=== PATIENT | female | born 1965 | race Hispanic/Latino ===

== ENCOUNTER 2017-01-29 06:38 | Day surgery (SDC) | payer MEDICARE ==
[2017-01-29 06:53] VITALS: BMI 42.5
--- NOTE | 2017-01-29 08:46 | CP.SDSHP ---
Same Day Surgery H & P - History Proposed Procedure: Colonoscopy Pre-Op Diagnosis: Screening colonoscopy - r/o colon polyps - Previous Medical/Surgical History Pulmonary: Emphysema/COPD Misc: Other (arthritis) Previous Surgical History: Lumbar spine surgery - Allergies Allergies: Allergies aspirin Adverse Reaction (Verified 01/29/17 06:53) URTICARIA ciprofloxacin [From Cipro] Adverse Reaction (Verified 01/29/17 06:53) URTICARIA Penicillins Adverse Reaction (Verified 01/29/17 06:53) ANAPHYLAXIS shellfish derived Adverse Reaction (Verified 01/29/17 06:53) URTICARIA - Physical Exam Vital Signs: Vital Signs 01/29/17 06:53 Temperature 98.6 F Pulse Rate 83 Respiratory 19 Rate Blood Pressure 97/68 L O2 Sat by Pulse 97 Oximetry Mental Status: Alert & Oriented x3 Neuro: WNL Heart: WNL Lungs: WNL GI: WNL - {Optional Preform as Required} Abdomen: WNL - Impression Impression: Colonoscopy planned - proceed with procedure Pt. Evaluated Today:Candidate for Anesthesia & Procedure: Yes - Date & Time Date: 01/29/17 Time: 08:10 Short Stay Discharge - Short Stay Discharge Admitting Diagnosis/Reason for Visit: SCREENING FOR COLON CANCER Disposition: HOME/ ROUTINE
[2017-01-29] MEDS ORDERED: Lactated Ringer's 500 ML IV ONE (09:10)
[2017-01-29] MEDS ORDERED: Lidocaine Hydrochloride 5 ML INJ ONE (09:12)
[2017-01-29] MEDS ORDERED: Propofol 10 mg/ml Inj (20 ML) ONE (09:12)
[2017-01-29] MEDS ORDERED: Albuterol HFA 90 mcg/actuation (8 g) ONE (09:12)
[2017-01-29 10:20] VITALS: RESP 21; O2SAT 100
[2017-01-29 10:48] VITALS: BP 112/84; PULSE 73; TEMP 97.2
== END 2017-01-29 10:45 | disposition home or self-care (01) ==
LOC: C.ENDO 06:38
PROVIDERS: ATTEND Internal Medicine Gastroenterology
DX: Z12.11 Encounter for screening for malignant neoplasm of colon (principal); Z12.12 Encounter for screening for malignant neoplasm of rectum; D12.5 Benign neoplasm of sigmoid colon; K57.30 Diverticulosis of large intestine without perforation or abscess without bleeding; K64.8 Other hemorrhoids; J43.9 Emphysema, unspecified; Z88.0 Allergy status to penicillin; Z91.013 Allergy to seafood
CPT/HCPCS: 45385; 88305; J2704; J7120

== ENCOUNTER 2017-03-05 08:55 | Day surgery (SDC) | payer MEDICARE ==
[2017-03-05 09:36] VITALS: BMI 41.3
[2017-03-05] MEDS ORDERED: Propofol 10 mg/ml Inj (20 ML) ONE ×2 (11:00→11:09)
[2017-03-05 14:15] VITALS: RESP 18; TEMP 97.5
[2017-03-05 14:16] VITALS: O2SAT 95
[2017-03-05 14:24] VITALS: BP 107/60; PULSE 78
== END 2017-03-05 12:42 | disposition home or self-care (01) ==
LOC: C.ENDO 08:55
PROVIDERS: ATTEND Internal Medicine Gastroenterology
DX: K31.7 Polyp of stomach and duodenum (principal); R79.89 Other specified abnormal findings of blood chemistry; K29.70 Gastritis, unspecified, without bleeding
CPT/HCPCS: 43270; 88305; 88312; 88313; 88342; J2704

== ENCOUNTER 2017-08-13 07:04 | Day surgery (SDC) | payer MEDICARE ==
[2017-08-03 08:10] VITALS: BMI 38.9
[2017-08-13] MEDS ORDERED: Clindamycin 600mg/50ml NS 600 MG/50 ML BAG IVPB ONE (08:54)
[2017-08-13] MEDS ORDERED: Midazolam 2 MG/2 ML VIAL ONE (09:02)
[2017-08-13] MEDS ORDERED: Propofol 10 mg/ml Inj (20 ML) ONE (09:02)
[2017-08-13] MEDS: Bupivacaine 0.25% Inj(30mL) ONE ×2 (09:12→09:28)
[2017-08-13] MEDS: Lidocaine/Epinephrine 1% 1:100000 10 ML IJ ONE ×2 (09:12→09:30)
--- NOTE | 2017-08-13 09:53 | PCM.SURG1 ---
Surgeon's Initial Post Op Note - Surgeon's Notes Surgeon: Dr finley Negative Cleaner: Dr Fermin PGY3 Type of Anesthesia: General Endo Pre-Operative Diagnosis: scalp lipoma Operative Findings: see report Post-Operative Diagnosis: as above Operation Performed: excision of scalp lipoma Specimen/Specimens Removed: lipoma Estimated Blood Loss: EBL {In ML}: 5 Blood Products Given: N/A Drains Used: No Drains Post-Op Condition: Good Date of Surgery/Procedure: 08/13/17 Time of Surgery/Procedure: 09:53
[2017-08-13] MEDS ORDERED: Oxycodone/Acetaminophen 5/325 mg Tab PO PRN (09:54)
[2017-08-13] MEDS ORDERED: HYDROmorphone 0.5 mg/0.5 ml ISec IVP PRN (09:55)
[2017-08-13 12:31] VITALS: BP 92/56; PULSE 63; RESP 18; TEMP 98.1; O2SAT 97
--- NOTE | 2017-08-14 06:56 | OP ---
PROCEDURE DATE: 08/13/2017 PREOPERATIVE DIAGNOSIS: Lipoma of the occipital scalp area, 4 x 3 cm in size. POSTOPERATIVE DIAGNOSIS: Lipoma of the occipital scalp area, 4 x 3 cm in size. PROCEDURE DONE: 1. Excision of the lipoma of the mid occipital scalp area, 4 x 3 cm in size. 2. Layer closure of the wound, 4 x 3 cm in size. TYPE OF ANESTHESIA: Local anesthesia plus sedation. ESTIMATED BLOOD LOSS: Around 10 mL. SURGEON: Ivan Tomlinson MD. BEAUTY PARLOR CLEANER: Norberto Fermin. COMPLICATIONS: None. DRAINS: None. PATHOLOGY: The lipoma was sent for the pathology. INTRAOPERATIVE FINDINGS: The patient had approximately 4 x 3 cm large lipoma of the mid occipital area. DESCRIPTION OF PROCEDURE: On intraoperative steps, this is a 52-year-old female who was diagnosed with lipoma of the mid occipital area and the patient was consented for excision, brought to the OR, placed in left lateral position on the operating table. After induction of the sedation, the scalp area was prepped and draped after shaving part of the lipoma area and local anesthesia was injected. The elliptical shaped incision was made after incising skin, subcutaneous tissue, and deep layer of the scalp. Upper and lower flap was created, and the lipoma was completely excised and it was sent off the table for the pathology. Hemostasis was achieved. The upper and lower flap was sutured with 2-0 Vicryl and the skin with multiple layer of 4-0 nylon interrupted suture, and dry sterile dressing was applied. The patient tolerated the procedure well. Count of the instrument and gauze was correct. There was no apparent complication. The patient was reversed from sedation. Sent to the postanesthesia care unit in stable condition. Ivan Tomlinson MD [place]
== END 2017-08-13 11:08 | disposition home or self-care (01) ==
LOC: C.SDS 07:04
PROVIDERS: ATTEND Surgery Surgical Critical Care
DX: D17.0 Benign lipomatous neoplasm of skin and subcutaneous tissue of head, face and neck (principal); Z88.0 Allergy status to penicillin; Z91.013 Allergy to seafood; Z88.6 Allergy status to analgesic agent; Z88.1 Allergy status to other antibiotic agents; M19.90 Unspecified osteoarthritis, unspecified site; J44.9 Chronic obstructive pulmonary disease, unspecified; E78.5 Hyperlipidemia, unspecified
CPT/HCPCS: 11426; 12032; 88304; J2250; J2704; J3010

== ENCOUNTER 2018-05-06 10:51 | Day surgery (SDC) | payer MEDICARE ==
[2018-05-03 10:55] VITALS: BMI 40.7
[2018-05-06] MEDS ORDERED: Lidocaine Hydrochloride 5 ML INJ ONE (11:25)
[2018-05-06] MEDS ORDERED: Absorbable Gelatin Sponge Size 12-7 ONE (11:26)
[2018-05-06] MEDS ORDERED: Midazolam 2 MG/2 ML VIAL ONE (12:27)
[2018-05-06 12:28] LABS: INR 1.1; PROTHROMBIN TIME 11.7 SECONDS (9.7-12.2)
--- NOTE | 2018-05-06 12:34 | PCM.SURG1 ---
Surgeon's Initial Post Op Note - Surgeon's Notes Surgeon: Kirk Piper MD Glass Cutting Machine Feeder: NONE Type of Anesthesia: IV Sedation Pre-Operative Diagnosis: Abnormal LFTs Operative Findings: US showed unremarkable left lobe of liver Post-Operative Diagnosis: Abnormal LFTs Operation Performed: US guided liver biopsy Specimen/Specimens Removed: 18 g core x 3 Estimated Blood Loss: EBL {In ML}: 2 Blood Products Given: Autologous (Cell Saver) Post-Op Condition: Good Date of Surgery/Procedure: 05/06/18 Time of Surgery/Procedure: 12:30
--- NOTE | 2018-05-06 12:35 | CP.SDSHP ---
Same Day Surgery H & P - History Proposed Procedure: US guided liver biopsy Pre-Op Diagnosis: abnormal lFTS - Allergies Allergies: Allergies Penicillins Adverse Reaction (Severe, Verified 05/03/18 10:46) ANAPHYLAXIS shellfish derived Adverse Reaction (Severe, Verified 05/03/18 10:46) ANAPHYLAXIS aspirin Adverse Reaction (Intermediate, Verified 05/03/18 10:46) URTICARIA ciprofloxacin [From Cipro] Adverse Reaction (Intermediate, Verified 05/03/18 10: 46) URTICARIA - Impression Impression: Pt with abnormal LFts referred for liver biopsy. Plan US guided left liver biopsy. INformed consent obtained. Pt. Evaluated Today:Candidate for Anesthesia & Procedure: Yes (ASA 2 Malampati 3) - Date & Time Date: 05/06/18 Time: 12:00 Short Stay Discharge - Short Stay Discharge Admitting Diagnosis/Reason for Visit: ABNORMAL RESULTS OF LIVER FUNCTION STUDIES Disposition: HOME/ ROUTINE
--- NOTE | 2018-05-06 13:35 | US ---
PROCEDURE: Date of procedure: 05/06/2018 Procedure: 1. Ultrasound-guided core liver biopsy, CPT 59668 2. Ultrasound guidance for biopsy, 73018 Medications: The patient is sedated by the anesthesiologist. HISTORY: Abnormal LFTs TECHNIQUE: Following informed consent and procedure time-out, the patient was placed supine on bed and limited ultrasound showed a normal appearing left hepatic lobe. After patient abdomen was prepped and draped in the usual sterile fashion and the skin was anesthetized with 2% lidocaine, an 18 gauge core needle was advanced percutaneously under direct ultrasound guidance into the left hepatic lobe. Upon confirmation of needle position, three 18 gauge core specimens were obtained and sent for routine pathology. The biopsy to tract was then embolized with Gelfoam. A post biopsy ultrasound showed no hematoma. A dressing was applied. IMPRESSION: Ultrasound-guided core biopsy left hepatic lobe. There were no immediate complications.
== END 2018-05-06 15:28 | disposition home or self-care (01) ==
LOC: C.SPRAD 10:51
PROVIDERS: ATTEND Radiology Vascular & Interventional Radiology
DX: R94.5 Abnormal results of liver function studies (principal)
CPT/HCPCS: 10022; 36415; 85610; 88307; 88312; 88313; J2250; J3010